=== PATIENT | male | born 2005 | race Caucasian/White ===

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

== ENCOUNTER → 2024-08-09 09:00 | Outpatient (BNVA) | payer MEDICAID, BC, SELFPAY | PROVIDERS: Visit Provider Nurse Practitioner Family | DX: Z13.6 Encounter for screening for cardiovascular disorders (principal); Z79.899 Other long term (current) drug therapy; L83 Acanthosis nigricans | CPT/HCPCS: 80053; 80061; 81003; 83036; 84443; 85025; 86038 ==

== ENCOUNTER → 2025-07-26 16:40 | Outpatient (BNVA) | payer MEDICAID, SELFPAY | PROVIDERS: Visit Provider Nurse Practitioner Family | DX: E66.813 Obesity, class 3 (principal); Z13.6 Encounter for screening for cardiovascular disorders; E78.1 Pure hyperglyceridemia; F41.9 Anxiety disorder, unspecified; F32.A Depression, unspecified; Z79.899 Other long term (current) drug therapy; R21 Rash and other nonspecific skin eruption | CPT/HCPCS: 80053; 80061; 81003; 82306; 83036; 83721; 84443; 85025; 86038 ==